=== PATIENT | female | born 1975 | race Caucasian/White ===

== ENCOUNTER 2018-05-23 10:44 | Outpatient (REF) | payer SELFPAY ==
--- NOTE | 2018-05-23 09:40 | PAPFT_PTH ---
PATIENT: Lisa James LOC: [facility] U#:[id number] AGE/SX: 42/F ROOM: RE05/23/[address]: CALLI Person : 1975 BED: DIS: 05/23/2018 SPEC #: [id number] RECD: 05/23/18 13:08 STATUS: GERSON FELICIANO #: [id number] DANETTE: 05/23/18 09:[address]: Renee Grier DEPT: [facility] Cytology RECD BY: Swetha Valencia ENTERED: 05/23/18 13:08 SP TYPE: PAPFT NO DR: Shanthi Cleveland DNP Tissues: 1 - CX/ENDOCX FOR PAP SMEARS Procedures: PAP THIN PREP/[facility] Screening HPV DNA PROBE Comments: [id number]
== END 2018-05-23 11:04 ==
LOC: LBN 10:44
PROVIDERS: PCP Nurse Practitioner Gerontology; Visit Provider Nurse Practitioner Family
DX: Z12.4 Encounter for screening for malignant neoplasm of cervix (principal)
CPT/HCPCS: 88142; 87624

== ENCOUNTER 2020-11-02 10:00 | Outpatient (REF) | payer SELFPAY ==
[2020-11-03 12:16] LABS: COVID-19 RT-PCR UVMMC Result Negative (Negative)
== END 2020-11-02 10:01 | disposition home or self-care (01) ==
LOC: NCHCN 10:00
PROVIDERS: Visit Provider Nurse Practitioner Family
DX: Z20.822 Contact with and (suspected) exposure to COVID-19 (principal)
CPT/HCPCS: U0003

== ENCOUNTER 2020-12-27 13:49 | Outpatient (REF) | payer SELFPAY ==
[2020-12-28 02:04] LABS: COVID-19 RT-PCR UVMMC Result Negative (Negative)
== END 2020-12-27 13:50 | disposition home or self-care (01) ==
LOC: NCHCN 13:49
PROVIDERS: Visit Provider Nurse Practitioner Family
DX: Z20.822 Contact with and (suspected) exposure to COVID-19 (principal)
CPT/HCPCS: U0003

== ENCOUNTER 2024-04-27 10:48 | Outpatient (REF) | payer BC, SELFPAY ==
--- NOTE | 2024-04-27 10:30 | PAPFT_PTH ---
PATIENT: Lisa James LOC: [facility] U#:[id number] AGE/SX: 48/F ROOM: RE04/27/[address]: Magdalena Tafoya NP : 1975 BED: DIS: 04/27/2024 SPEC #: [id number] RECD: 04/27/24 12:55 STATUS: GERSON REEdie #: [id number] DANETTE: 04/27/24 10:[address]: Michelet COOPER,Magdalena DEPT: [facility] Cytology RECD BY: Swetha Valencia ENTERED: 04/27/24 12:55 SP TYPE: PAPFT OT DR: Unknown,Unknown Tissues: 1 - CX/ENDOCX FOR PAP SMEARS Procedures: PAP THIN PREP/[facility] Screening HPV DNA PROBE Comments: [id number] (HPV 16 & 18/45)
== END 2024-04-27 10:49 | disposition home or self-care (01) ==
LOC: LBN 10:48
PROVIDERS: Visit Provider Nurse Practitioner Women's Health
DX: Z11.51 Encounter for screening for human papillomavirus (HPV) (principal); Z01.419 Encounter for gynecological examination (general) (routine) without abnormal findings
CPT/HCPCS: 88142; 87624

== ENCOUNTER 2024-05-21 00:40 | Outpatient (CLI) | payer BC, SELFPAY ==
--- NOTE | 2024-05-21 12:09 | DI.MAMMO_ITS ---
Exam(s) MAMMO SCREENING EXAM: MAMMO SCREENING CLINICAL HISTORY: screening TECHNIQUE: Bilateral full field digital CC and MLO mammographic images were obtained with 3D tomosyn thesis and utilizing computer aided detection (CAD). COMPARISON: Available for comparison. FINDINGS: Masses/Architectural Distortion: There is a question of an area of architectural distortion at the 12 o'clock position of the left breast 4 cm from the nipple. Microcalcifications: No suspicious pleomorphic-type are seen. Skin Thickening/Nipple Retraction: None. IMPRESSION: 1. Question of an area of architectural distortion at the 12 o'clock position of the left breast. 2. This area should be further evaluated with a spot compression views. Left breast ultrasound is re quested for further evaluation. BI-RADS Category 0 - Incomplete: Need additional imaging evaluation Breast Density - Category C - Heterogeneously dense Breast density category C or D implies that the patient has dense breast tissue. Dense breast tissue is very common and is not abnormal but dense breast tissue can make it harder to find cancer on a ma mmogram. Also, dense breast tissue may increase their breast cancer risk. This information about the result of the mammogram report was provided to the patient to raise their awareness. Use this report when you speak with the patient about their risks for breast cancer, which includes their family hist ory. At that time, you may recommend for more screening tests (Ultrasound or MRI) as they might be us eful based on their risk. A negative radiographic report should not delay biopsy if a dominant or clinically suspicious mass is present. Up to ten percent of cancers are not identified on mammography. A negative report may reinforce clinical impression. Adenosis and dense breasts may obscure an underlying neoplasm. False positive reports average 6 to 10%. Patient will receive a letter notifying them of these results.
== END 2024-05-21 01:00 ==
PROVIDERS: PCP Nurse Practitioner Family; Visit Provider Nurse Practitioner Women's Health
DX: Z12.31 Encounter for screening mammogram for malignant neoplasm of breast (principal); R92.333 Mammographic heterogeneous density, bilateral breasts
CPT/HCPCS: 77063; 77067

== ENCOUNTER 2024-06-01 01:09 | Outpatient (CLI) | payer BC, SELFPAY ==
--- NOTE | 2024-06-01 | DI.MAMMO_ITS ---
Exam(s) MG MAMMO SCREEN CALL BACK UNI EXAM: MAMMO SCREEN CALL BACK UNI-LEFT CLINICAL HISTORY: ? ARCHITECTURAL DISTORTION 12 O'CLOCK LEFT BREAST R92.8 ABNL MAMMO. TECHNIQUE: Unilateral spot LEFT BREAST CC AND MLO mammographic images obtained with 3D tomosynthesis and utilizing computer aided detection (CAD). . COMPARISON: Prior mammograms were reviewed. This additional imaging was performed due to findings described on the recent screening mammogram of . FINDINGS: DIAGNOSTIC MAMMOGRAM: Additional mammographic views performed todayto exhibit very subtle architectural distortion at appro ximately 12 o'clock position There are no malignant-appearing microcalcification groups in this region IMPRESSION: 1. Persistent very subtle architectural distortion at approximately 12 o'clock position left breast. 2. Patient was apparently not able to stay for her scheduled breast ultrasound today. She has been scheduled for sign examination tomorrow. BI-RADS Category 0 - Incomplete: Need additional imaging evaluation Breast Density - Category C - Heterogeneously dense Breast density Category C or D implies that the patient has dense breast tissue. Dense breast tissue can make it harder to find cancer on a mammogram. Dense breast tissue is also associated with an incr eased risk of breast cancer. This information about the result of the mammogram report was provided to the patient to raise their awareness. Use this report when you speak with the patient about their risks for breast cancer, which includes their family history. At that time, you may recommend additional screening tests (Ultrasoun d or MRI) as these tests may add significant information. A negative radiographic report should not delay biopsy if a dominant or clinically suspicious mass is present. Up to ten percent of cancers are not identified on mammography. A negative report may reinforce clinical impression. Adenosis and dense breasts may obscure an underlying neoplasm. False positive reports average 6 to 10%. Patient will receive a letter notifying them of these results.
== END 2024-06-01 01:29 ==
LOC: DI 01:12
PROVIDERS: PCP Nurse Practitioner Family; Visit Provider Nurse Practitioner Women's Health
DX: Z12.31 Encounter for screening mammogram for malignant neoplasm of breast (principal); R92.8 Other abnormal and inconclusive findings on diagnostic imaging of breast; R92.333 Mammographic heterogeneous density, bilateral breasts
CPT/HCPCS: 77063; 77067